=== PATIENT | male | born 1995 | race African-American/Black ===

== ENCOUNTER 2017-08-23 21:28 | Emergency (ER) | payer BC ==
[~2017-08-23] VITALS: Ht 175.3 cm; Wt 81.7 kg
[2017-08-23] MEDS ORDERED: DOXYCYCLINE 10100 MG PO (21:53)
[2017-08-23] MEDS ORDERED: ACETAMINOPHEN-1 EAC1 PO (21:53)
[2017-08-23 22:15] VITALS: BP 125/60
== END 2017-08-23 22:15 | disposition home or self-care (01) ==
LOC: M.ERS 21:28
DX: L02.211 Cutaneous abscess of abdominal wall (principal)

== ENCOUNTER 2017-12-01 20:16 | Emergency (ER) | payer BC ==
[~2017-12-01] VITALS: Ht 172.7 cm; Wt 61.2 kg
[~2017-12-01 20:16] MED LIST: ACETAMINOPHEN-1 EAC1 PO; DOXYCYCLINE 10100 MG PO
[2017-12-01 20:24] VITALS: BP 122/84
[2017-12-01] MEDS ORDERED: NORCO 5-325 TA1 EAC1 PO (21:27)
[2017-12-01] MEDS ORDERED: AUGMENTIN 875-1 EACH PO (21:27)
== END 2017-12-01 21:40 | disposition home or self-care (01) ==
LOC: M.ERS 20:16
DX: N49.2 Inflammatory disorders of scrotum (principal); L72.3 Sebaceous cyst